=== PATIENT | male | born 1985 | race Caucasian/White ===

== ENCOUNTER 2019-10-17 18:27 | Emergency (ER) | payer OTHER ==
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
[2019-10-17] MEDS ORDERED: BACIGUENT PACKET TP ONE (18:38)
[2019-10-17] MEDS ORDERED: BACIGUENT PACKET ONE (18:47)
[2019-10-17] MEDS ORDERED: Adacel Vial IM ONE (18:48)
[2019-10-17] MEDS: Adacel Vial IM ONE ×2 (18:50→19:07)
[2019-10-17 18:57] VITALS: BP 150/99; PULSE 130; O2SAT 98
== END 2019-10-17 19:26 | disposition home or self-care (01) ==
LOC: ED 18:27
DX: T22.212A Burn of second degree of left forearm, initial encounter (principal); T20.20XA Burn of second degree of head, face, and neck, unspecified site, initial encounter; X03.0XXA Exposure to flames in controlled fire, not in building or structure, initial encounter
CPT/HCPCS: 90715; 99283; A9270-GY